=== PATIENT | male | born 1960 | race African-American/Black ===

== ENCOUNTER 2024-02-15 12:22 | Emergency (ER) | payer OTHER ==
[2024-02-15 12:46] VITALS: BP 108/63; PULSE 83; RESP 19; TEMP 98.6; BMI 32.6
[2024-02-15 14:23] LABS: BASO % 0.7 % (0-2.0); EOS % 1.4 % (0-4.5); HEMATOCRIT 38.3 % (35.4-49); HEMOGLOBIN 12.5 GM/dL (11.7-16.9); MCH 26.2 pg (25.7-33.7); MCHC 32.6 g/dl (32.0-35.9); MEAN CELL VOLUME 80.1 fl (80-96); MEAN PLT VOLUME 7.7 fl (7.5-11.1); MONO % 12.4 % (3.8-10.2); NEUT % 64.5 % (42.8-82.8); PLATELET COUNT 298 10^3/uL (134-434); RBC 4.79 M/mm3 (4.00-5.60); RDW 14.4 % (11.9-15.9); WHITE BLOOD COUNT 5.1 K/mm3 (4.0-10.0)
[2024-02-15 14:41] LABS: POTASSIUM 4.7 mmol/L (3.5-5.1)
[2024-02-15 14:44] LABS: ALBUMIN 3.6 g/dl (3.4-5.0); CALCIUM 9.5 mg/dL (8.5-10.1)
[2024-02-15 14:49] LABS: BILIRUBIN,TOTAL 0.2 mg/dL (0.2-1); TOT PROT 7.4 g/dl (6.4-8.2)
[2024-02-15 15:28] LABS: EPI CELLS 2 /uL (0-25.1); HYALINE CASTS 5 /uL (0-3.1); PH,URINE 7.5 (5.0-8.0); URINE APPEARANCE TURBID; URINE BACTERIA >9,000 /uL (0-1359); URINE BILIRUBIN 1+ (NEGATIVE); URINE COLOR RED; URINE GLUCOSE (UA) NEGATIVE (NEGATIVE); URINE KETONE NEGATIVE (NEGATIVE); URINE LEUK ESTERASE 2+ (NEGATIVE); URINE NITRITE POSITIVE (NEGATIVE); URINE PROTEIN 2+ (NEGATIVE); URINE RBC 30145 /uL (0-23.9); URINE UROBILINOGEN 0.2 mg/dL (0.2-1.0); URINE WBC 222 /uL (0-25.8)
[2024-02-15] MEDS ORDERED: CEFTRIAXONE 1 GM/50 ML BAG ONE (15:35)
[2024-02-15] MEDS: CEFTRIAXONE 1 GM in DEXTROSE 5%-WATER - 100 ML IVPB ONE (15:41)
== END 2024-02-15 23:04 | disposition home or self-care (01) ==
LOC: JER 12:22
PROC: 3E033GC Introduction of Other Therapeutic Substance into Peripheral Vein, Percutaneous Approach (ICD-10-PCS; principal; 2024-02-15)
DX: N39.0 Urinary tract infection, site not specified (principal); R30.0 Dysuria
CPT/HCPCS: 36415; 80053; 81003; 85025; 87086; 87186; 93005; 93010; 99284-25